=== PATIENT | female | born 1975 | race Caucasian/White ===

== ENCOUNTER 2021-09-10 01:42 | Emergency (ER) | payer SELFPAY ==
[~2021-09-10] VITALS: Ht 160 cm; Wt 60.0 kg
[2021-09-10] MEDS ORDERED: KETOROLAC 60MG/2ML VIAL IM ONE (02:45)
[2021-09-10] MEDS ORDERED: DIPHENHYDRAMINE 25MG CAPSULE PO ONE (02:45)
[2021-09-10 02:52] VITALS: BP 148/92
== END 2021-09-10 05:10 | disposition home or self-care (01) ==
LOC: ER 01:42
DX: R51.9 Headache, unspecified (principal)
CPT/HCPCS: 96372; 99283; J1885; Q0163